=== PATIENT | male | born 1985 | race Caucasian/White ===

== ENCOUNTER 2018-12-29 00:10 | Emergency (ER) | payer SELFPAY, OTHER ==
[2018-12-29] MEDS: IBUPROFEN 200 MG TAB PO (01:18)
[2018-12-29] MEDS: ACETAMINOPHEN 325 MG TAB PO (01:19)
== END 2018-12-29 02:40 | disposition home or self-care (01) ==
LOC: FTE 00:10
DX: S40.011A Contusion of right shoulder, initial encounter (principal); F17.210 Nicotine dependence, cigarettes, uncomplicated; W18.39XA Other fall on same level, initial encounter; Y92.9 Unspecified place or not applicable
CPT/HCPCS: 73030; 73030-RT; 99283-25